=== PATIENT | male | born 1995 | race Two or more races ===

== ENCOUNTER 2023-05-30 12:54 | Emergency (ER) | payer SELFPAY ==
[~2023-05-30] VITALS: Ht 185.4 cm; Wt 77.3 kg
[2023-05-30 13:01] VITALS: BP 154/76; PULSE 99; RESP 17; O2SAT 99
[2023-05-30] MEDS ORDERED: ACETAMINOPHEN 325 MG TAB PO ONE (13:15)
[2023-05-30] MEDS ORDERED: TETANUS-DIPTH-ACEL PERTUSSIS 0.5ML SYR Tdap IM ONE (14:30)
[2023-05-30] MEDS ORDERED: AMOXICILLIN/CLAVUL 875 MG TAB PO ONE (14:30)
[2023-05-30] MEDS ORDERED: HYDROcodone-ACET 5/325MG TAB PO ONE (14:30)
[2023-05-30] MEDS ORDERED: LIDOCAINE 1% HCL (LOCAL ANESTH.) INJ 20ML MDV ID ONE (14:30)
[2023-05-30] MEDS ORDERED: AUG875T PO (15:38)
[2023-05-30] MEDS ORDERED: HYDR-4902 PO (15:38)
[2023-05-30] MEDS ORDERED: MUPI2OIN2 EX (15:38)
== END 2023-05-30 16:02 | disposition home or self-care (01) ==
LOC: EDUNIT# 12:54 → EDSEX 12:54 → ER 12:54 → EDBD 12:54 → ER 16:02
DX: S51.812A Laceration without foreign body of left forearm, initial encounter (principal); Z88.8 Allergy status to other drugs, medicaments and biological substances; W54.0XXA Bitten by dog, initial encounter; Y93.89 Activity, other specified; Y92.89 Other specified places as the place of occurrence of the external cause; Y99.8 Other external cause status
CPT/HCPCS: 12044; 73090; 90715; 96372; 99284; J2001